=== PATIENT | female | born 1960 | race Caucasian/White ===

== ENCOUNTER → 2020-02-24 11:41 | Outpatient (CLI) | payer MEDICARE, MEDICAID, SELFPAY ==
--- NOTE | 2020-02-24 | DI.MRI.S_ITS ---
PROCEDURE: MR LUMBAR SPINE WO CON INDICATIONS: LOW BACK PAIN TECHNIQUE: Noncontrast sagittal T1 spin echo and T2 fast echo, coronal T2, sagittal STIR, axial T1 and T2 fast spin echo through the lumbar spine. COMPARISON: [facility] [place], CR, XR LUMBAR SPINE WITH OLBIQUES PLUS FLEXION EXTENSION, 02/19/2020, 15:06. FINDINGS: Image quality: Excellent. Alignment and Curvature: 5 lumbar type vertebral bodies are present by plain film. Mild diffuse rightward curvature of the lumbar spine. Loss of normal lumbar lordosis. Bone Marrow: Marrow is of normal overall signal. No acute vertebral body compression fractures. Mild reactive signal within the endplates adjacent to the L3-L4 and L4-L5 intervertebral discs. Spinal Cord: Conus medullaris terminates at the upper L1 level. Visualized cord demonstrates normal signal and size. Paraspinous Soft Tissues: No paravertebral masses. L1-L2: Mild disc desiccation. Mild diffuse disc bulge. Mild facet and ligamentum flavum hypertrophy. Mild epidural lipomatosis. No significant canal, or foraminal stenosis. L2-L3: Mild disc desiccation. Mild facet and ligamentum flavum hypertrophy. Mild epidural lipomatosis. No significant canal, or foraminal stenosis. L3-L4: Normal appearance. L4-L5: Moderate disc height loss and desiccation. Mild diffuse disc bulge/osteophyte. Mild facet and ligamentum flavum hypertrophy. Mild epidural mitosis. Mild canal stenosis. Moderate bilateral foraminal stenosis. L5-S1: Mild disc desiccation and diffuse disc bulge. Mild bilateral facet and ligamentum flavum hypertrophy. Mild canal stenosis. Mild bilateral foraminal stenosis. IMPRESSION: 1. Multilevel degenerative disc and facet disease, as well as ligamentum flavum hypertrophy and epidural lipomatosis. 2. Mild multilevel canal stenosis. 3. Multilevel foraminal stenoses, worst at L4-L5 where there are moderate foraminal stenosis present. Dictated by: Av Samuel M.D. on 02/26/2020 at 8:30 Approved by: Av Samuel M.D. on 02/26/2020 at 8:34
== END ==
PROVIDERS: Referring Provider Physical Medicine & Rehabilitation; Visit Provider Physical Medicine & Rehabilitation
DX: M54.5 Low back pain (principal); M51.36 Other intervertebral disc degeneration, lumbar region; M51.37 Other intervertebral disc degeneration, lumbosacral region; M48.061 Spinal stenosis, lumbar region without neurogenic claudication; M48.07 Spinal stenosis, lumbosacral region; E88.2 Lipomatosis, not elsewhere classified
CPT/HCPCS: 72148

== ENCOUNTER → 2020-07-19 15:51 | Outpatient (CLI) | payer MEDICARE, MEDICAID, SELFPAY ==
--- NOTE | 2020-07-19 15:54 | DI.MRI.S_ITS ---
PROCEDURE: MR HIP LT WO CON INDICATIONS: Other specified disorders of bone, thigh TECHNIQUE: Noncontrast coronal T1 spin echo and STIR through the bony pelvis. Coronal and axial T2 fast spin echo with fat saturation, sagittal T1 spin echo, and oblique axial T2 fast spin echo with fat saturation through the hip. COMPARISON: [facility] [place], CR, XR FEMUR 2+ VIEWS LEFT, 07/11/2020, 15:36. None FINDINGS: Image quality: Excellent. Bones and joints: Moderate periarticular osteophyte formation at the left hip joint. Bone marrow of the pelvic ring and proximal femurs show normal signal throughout. No intraosseous lesions or fractures. No avascular necrosis of the femoral heads. The visualized lower lumbar spine appears normally aligned. Tendons and ligaments: The gluteus medius and minimus tendons appear intact, without associated muscle atrophy. The nearby proximal iliotibial band also appears intact. The iliopsoas tendon appears intact, without adjacent bursal fluid collections or evidence for impingement syndrome. The origin of the hamstring tendon is intact at the ischial tuberosity, as well as the associated sacrotuberous ligament. The straight and reflected heads of the rectus femoris muscle origin appear intact, as well as the conjoint tendon. The ligamentum teres appears intact where visualized. Labrum and cartilage: Diffuse amorphous high T2 signal intensity within the anterosuperior and superolateral left hip labrum. Cartilage surface of the femoral head appears of normal thickness. The alpha angle of the femur is within normal limits at less than 55 degrees. However, there is buttressing of the left femoral head/neck junction, suggestive of femoral acetabular impingement. Soft tissues: Visualized muscles demonstrate normal bulk and internal signal. Quadratus femoris muscle demonstrates no internal edema to suggest ischiofemoral impingement. The proximal sciatic neurovascular bundle appears normal adjacent to the hamstring tendons. No free pelvic fluid. Bladder wall thickness is normal. Genitourinary structures and bowel loops appear normal where visualized. There is a well-circumscribed, benign-appearing septated cystic high T2 intensity focus within the left hemipelvis at the medial aspect of the acetabulum measuring 23 mm. IMPRESSION: 1. 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 2. Degenerative tearing of the left hip labrum. 3. Benign-appearing cystic focus within the left hemipelvis laterally. Dictated by: Av Samuel M.D. on 07/22/2020 at 9:01 Approved by: Av Samuel M.D. on 07/22/2020 at 9:04
== END ==
PROVIDERS: PCP Registered Nurse; Referring Provider Physical Medicine & Rehabilitation; Visit Provider Physical Medicine & Rehabilitation
DX: M89.8X5 Other specified disorders of bone, thigh (principal); M16.12 Unilateral primary osteoarthritis, left hip; S73.192A Other sprain of left hip, initial encounter
CPT/HCPCS: 73721